=== PATIENT | male | born 1975 | race Two or more races ===

== ENCOUNTER 2016-03-16 10:55 | Emergency (ER) | payer OTHER ==
[2016-03-16 11:13] VITALS: TEMP 98.2
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
[2016-03-16 14:42] VITALS: BP 121/89; PULSE 76; RESP 16; O2SAT 93
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
== END 2016-03-16 14:42 | disposition home or self-care (01) ==
DX: S16.1XXA Strain of muscle, fascia and tendon at neck level, initial encounter (principal); S29.9XXA Unspecified injury of thorax, initial encounter; I10 Essential (primary) hypertension; V43.52XA Car driver injured in collision with other type car in traffic accident, initial encounter; Y92.410 Unspecified street and highway as the place of occurrence of the external cause; Y99.8 Other external cause status; Y93.89 Activity, other specified